=== PATIENT | male | born 1940 | race Hispanic/Latino ===

== ENCOUNTER 2020-03-12 16:48 | Emergency (ER) | payer MEDICARE, SELFPAY ==
[2020-03-12] VITALS (13 sets, daily range): BP systolic 129–144; BP diastolic 60–67; PULSE 65–76; RESP 16–21; O2SAT 97
--- NOTE | 2020-03-12 17:01 | DI.RAD.S_ITS ---
PROCEDURE: XR CHEST 1V INDICATIONS: chest pain TECHNIQUE: One view of the chest was acquired. COMPARISON: None. FINDINGS: Surgical changes and devices: None. Lungs and pleura: Lungs are clear. No pleural effusions or pneumothorax. Mediastinum: A questionable soft tissue mass versus overlapping vascular and bone shadows is noted over the right apex. Mediastinal contours appear normal. Heart size is normal. Bones and chest wall: No suspicious bony lesions. Overlying soft tissues appear unremarkable. IMPRESSION: 1. No acute cardiopulmonary findings. 2. Questionable right apical soft tissue mass versus artifact. When available, PA and lateral view recommended to further characterize findings. Dictated by: Arlen Austin M.D. on 03/12/2020 at 17:26 Approved by: Arlen Austin M.D. on 03/12/2020 at 17:27
[2020-03-12] MEDS: ASPIRIN 81 MG CHEW TAB 324 MG PO (17:12)
--- NOTE | 2020-03-12 17:15 | ED.CHESTPAIN ---
HPI - Chest Pain <DO Chester Gilliam Last Filed: 03/14/20 06:59> General Chief Complaint: Chest Pain Stated Complaint: cant breath, pressure on his chest Time Seen by Provider: 03/12/20 17:06 Source: patient Mode of arrival: Ambulatory Limitations: no limitations History of Present Illness HPI narrative: Patient is an 79-year-old male who presents with chest pain off and on but worse today. He says this morning he woke up at about 430 with chest discomfort. He got up to sit in the recliner and was able to fall back asleep. He has had multiple episodes of his chest discomfort today a progressively seems to be getting worse. Nothing makes it better or worse remains on the left side of his chest without any radiation. He does have some shortness of breath which she use to be worse with exertion. He has had a chronic ongoing cough which is not any worse today. He says sometimes he coughs things up and sometimes not. Initially his chest pain was 8/10 with triage but he now he says it is very mild and 1/10. He is noted to have a left bundle branch block which she is unaware of. MD complaint: chest pain Onset (ago): hour(s) Duration: intermittent Onset: during rest and during exertion Pain location: left chest Severity: moderate Quality: aching Pain radiation: none Relieving factors: nothing Exacerbating factors: nothing Related Data Home Medications Medication Instructions Recorded Confirmed amlodipine 10 mg PO QAM 03/12/20 03/12/20 benazepril 40 mg PO QAM 03/12/20 03/12/20 hydrochlorothiazide 25 mg PO QAM 03/12/20 03/12/20 Allergies Allergy/AdvReac Type Severity Reaction Status Date / Time No Known Drug Allergies Allergy Verified 03/12/20 17:18 Review of Systems <DO Chester Gilliam Last Filed: 03/14/20 06:59> Review of Systems Narrative: GENERAL: Denies chills, fatigue, malaise, fever, sweats, travel HEENT: Denies sinus pain, ear pain, sore throat, difficulty swallowing, neck pain RESPIRATORY: Denies dyspnea, cough, wheezing, hemoptysis, sputum. CARDIOVASCULAR: See HPI GASTROINTESTINAL: Denies nausea, vomiting, abdominal pain, diarrhea, constipation, melena. : Denies dysuria, frequency, incontinence, hematuria, urinary retention, flank pain. MUSCULOSKELETAL: Denies weakness, joint pain, or bony pain SKIN: No rash, no erythema, no pruritus NEUROLOGIC: Denies weakness, dizziness, headache, numbness, change in speech, confusion PSYCHIATRIC: No concerning psychosocial issues. 12 point review of systems is negative except for those stated above and HPI Patient History <Tete Painter DO - Last Filed: 03/14/20 06:59> Medical History (Updated 03/12/20 @ 20:38 by Prerna Saenz RN) Hypertension (Acute) Exam <Tete Painter DO - Last Filed: 03/14/20 06:59> Initial Vital Signs Initial Vital Signs: Vital Signs Pulse Rate 74 03/12/20 17:18 Blood Pressure 140/65 03/12/20 17:18 GENERAL: Pleasant alert male appears younger than stated age and in no acute distress. HEENT: Head atraumatic,EOMI, pupils reactive, face symmetric, moist mucous membranes CARDIOVASCULAR: Regular rate and rhythm systolic murmur patient states he is aware of a murmur RESPIRATORY: Breath sounds equal bilaterally, no wheezes rales or rhonchi. ABDOMEN: Soft, nontender. Normoactive bowel sounds all 4 quadrants. No guarding or rebound. EXTREMITIES: Normal range of motion, no clubbing or edema. Neurovascularly intact NEUROLOGICAL: Alert and oriented x4.Normal gait and speech. SKIN: Warm, dry, no laceration, no petechiae, no rashes or lesions. <Pilo Nelson DO - Last Filed: 03/12/20 23:52> Initial Vital Signs Initial Vital Signs: Vital Signs Pulse Rate 74 03/12/20 17:18 Blood Pressure 140/65 03/12/20 17:18 Course <Tete Painter DO - Last Filed: 03/14/20 06:59> Orders Ordered: Discontinued Medications Aspirin (Aspirin Chew) 324 mg PO NOW ONE Stop: 03/12/20 17:07 Last Admin: 03/12/20 17:12 Dose: 324 mg Documented by: SOL Nitroglycerin (Nitrostat) 0.4 mg SL [id number] PRN PRN Reason: Chest Pain Last Admin: 03/12/20 17:18 Dose: 0.4 mg Documented by: SOL Vital Signs Vital signs: Vital Signs - 8 hr 03/12/20 17:18 03/12/20 17:31 03/12/20 17:45 Pulse Rate 74 76 68 Respiratory Rate 16 18 Blood Pressure 140/65 134/65 131/60 Pulse Oximetry 97 03/12/20 18:00 03/12/20 18:15 03/12/20 18:30 Pulse Rate 67 69 68 Respiratory Rate 18 20 17 Blood Pressure 137/62 129/63 139/61 Pulse Oximetry 03/12/20 18:45 03/12/20 19:00 03/12/20 19:15 Pulse Rate 65 69 67 Respiratory Rate 17 20 18 Blood Pressure 136/61 142/62 H 131/60 Pulse Oximetry 03/12/20 19:30 03/12/20 19:45 03/12/20 20:00 Pulse Rate 73 66 74 Respiratory Rate 17 21 Blood Pressure 138/65 137/61 142/64 H Pulse Oximetry 03/12/20 20:15 Pulse Rate 74 Respiratory Rate 17 Blood Pressure 144/67 H Pulse Oximetry <Pilo Nelson, - Last Filed: 03/12/20 23:52> Course Course Narrative: Patient received in sign-out from Dr. Painter. Patient was waiting for repeat troponin to determine admission here versus transfer. Troponin returned slightly lower than first and plan was to admit here, but patient refused, stating he'd been evaluated previously and was told nothing could happen. I was unable to speak with patient prior to leaving, but through nursing he understood risk, had capacity to make this decision and would be following up. Orders Ordered: Discontinued Medications Aspirin (Aspirin Chew) 324 mg PO NOW ONE Stop: 03/12/20 17:07 Last Admin: 03/12/20 17:12 Dose: 324 mg Documented by: SOL Nitroglycerin (Nitrostat) 0.4 mg SL [id number] PRN PRN Reason: Chest Pain Last Admin: 03/12/20 17:18 Dose: 0.4 mg Documented by: SOL Vital Signs Vital signs: Vital Signs - 8 hr 03/12/20 17:18 03/12/20 17:31 03/12/20 17:45 Pulse Rate 74 76 68 Respiratory Rate 16 18 Blood Pressure 140/65 134/65 131/60 Pulse Oximetry 97 03/12/20 18:00 03/12/20 18:15 03/12/20 18:30 Pulse Rate 67 69 68 Respiratory Rate 18 20 17 Blood Pressure 137/62 129/63 139/61 Pulse Oximetry 03/12/20 18:45 03/12/20 19:00 03/12/20 19:15 Pulse Rate 65 69 67 Respiratory Rate 17 20 18 Blood Pressure 136/61 142/62 H 131/60 Pulse Oximetry 03/12/20 19:30 03/12/20 19:45 03/12/20 20:00 Pulse Rate 73 66 74 Respiratory Rate 17 21 Blood Pressure 138/65 137/61 142/64 H Pulse Oximetry 03/12/20 20:15 Pulse Rate 74 Respiratory Rate 17 Blood Pressure 144/67 H Pulse Oximetry MDM - Chest Pain <Tete Painter DO - Last Filed: 03/14/20 06:59> Lab Data Attestation: I reviewed the patient's lab results. Result diagrams: 03/12/20 17:00 03/12/20 17:00 Labs: Lab Results 03/12/20 03/12/20 03/12/20 Range/Units 17:00 17:00 17:00 WBC 5.2 (4.5-11.0) X10^3/uL RBC 4.40 L (4.5-5.9) X10^6/uL Hgb 12.8 L (13.5-17.5) g/dL Hct 38.0 L (41-53) % MCV 86.2 (80-100) fL MCH 29.1 (26-34) PG MCHC 33.8 (30-36) % RDW 14.1 (11.6-14.8) % Plt Count 208 (150-400) X10^3/uL Neut % (Auto) 54.3 (50-75) % Lymph % (Auto) 29.2 (25-40) % [place] % (Auto) 9.5 (3-14) % Eos % (Auto) 4.1 H (2-4) % Baso % (Auto) 2.9 H (0-2) % Neut # (Auto) 2800 (8051-5430) /uL Lymph # (Auto) 1500 (2122-7610) /uL [place] # (Auto) 500 (0-900) /uL Eos # (Auto) 200 (0-450) /uL Baso # (Auto) 200 H (0-100) /uL PT 12.8 H (10.1-12.7) SECONDS INR 1.1 (0.9-1.3) APTT 36 (26.4-36.2) SECONDS Sodium 136 L (137-145) mmol/L Potassium 3.7 (3.4-5.1) mmol/L Chloride 107 (98-107) mmol/L Carbon Dioxide 19 L (22-32) mmol/L BUN 25 H (9-20) mg/dL Creatinine 1.35 H (0.66-1.25) mg/dL Estimated GFR 50.9 L (>60) mL/min BUN/Creatinine Ratio 18.5 (6-22) Glucose 87 (80-110) mg/dL Calcium 9.2 (8.4-10.2) mg/dL Magnesium 2.0 (1.6-2.3) mg/dL Total Bilirubin 0.9 (0.2-1.3) mg/dL AST 24 (17-59) IU/L ALT 10 (<50) IU/L Alkaline Phosphatase 77 (38-126) U/L Total Creatine Kinase 72 (55-170) U/L CK-MB (CK-2) TNP CK-MB (CK-2) Rel Index TNP Troponin I 0.062 H (0.01-0.034) ng/mL NT-Pro-B Natriuret Pep (<450) pg/mL Total Protein 7.0 (6.3-8.2) g/dL Albumin 4.1 (3.5-5.0) g/dL Globulin 2.9 (1.7-4.1) g/dL Albumin/Globulin Ratio 1.4 (1.0-2.8) Lipase 79 (23-300) U/L Urine RBC (0-5/HPF) Urine WBC (0-5/HPF) Ur Squamous Epith Cells (0-5/HPF) Urine Bacteria (None) Ur Culture Indicated? 03/12/20 03/12/20 03/12/20 Range/Units 17:00 18:01 19:00 WBC (4.5-11.0) X10^3/uL RBC (4.5-5.9) X10^6/uL Hgb (13.5-17.5) g/dL Hct (41-53) % MCV (80-100) fL MCH (26-34) PG MCHC (30-36) % RDW (11.6-14.8) % Plt Count (150-400) X10^3/uL Neut % (Auto) (50-75) % Lymph % (Auto) (25-40) % [place] % (Auto) (3-14) % Eos % (Auto) (2-4) % Baso % (Auto) (0-2) % Neut # (Auto) (8243-3499) /uL Lymph # (Auto) (6583-4490) /uL [place] # (Auto) (0-900) /uL Eos # (Auto) (0-450) /uL Baso # (Auto) (0-100) /uL PT (10.1-12.7) SECONDS INR (0.9-1.3) APTT (26.4-36.2) SECONDS Sodium (137-145) mmol/L Potassium (3.4-5.1) mmol/L Chloride (98-107) mmol/L Carbon Dioxide (22-32) mmol/L BUN (9-20) mg/dL Creatinine (0.66-1.25) mg/dL Estimated GFR (>60) mL/min BUN/Creatinine Ratio (6-22) Glucose (80-110) mg/dL Calcium (8.4-10.2) mg/dL Magnesium (1.6-2.3) mg/dL Total Bilirubin (0.2-1.3) mg/dL AST (17-59) IU/L ALT (<50) IU/L Alkaline Phosphatase (38-126) U/L Total Creatine Kinase (55-170) U/L CK-MB (CK-2) CK-MB (CK-2) Rel Index Troponin I 0.057 H (0.01-0.034) ng/mL NT-Pro-B Natriuret Pep 85522 H (<450) pg/mL Total Protein (6.3-8.2) g/dL Albumin (3.5-5.0) g/dL Globulin (1.7-4.1) g/dL Albumin/Globulin Ratio (1.0-2.8) Lipase (23-300) U/L Urine RBC 0-1/hpf (0-5/HPF) Urine WBC 0-1/hpf (0-5/HPF) Ur Squamous Epith Cells 0-1 /hpf (0-5/HPF) Urine Bacteria None seen (None) Ur Culture Indicated? Cult not indicated Urine Dip Bedside Urine Glucose Negative Bedside Urine Bilirubin - Negative Bedside Urine Ketone - Negative Urine Specific [place] 1.015 Bedside Urine Occult Blood +/- Bedside Urine pH 6.0 Bedside Urine Protein + 30 Bedside Urine Urobilinogen - Negative Bedside Urine Nitrite - Negative Bedside Urine Leukocytes - Negative Esterase Imaging Data Chest x-ray: Attestation: I personally reviewed and interpreted this imaging study as follows: My Impression: PROCEDURE: XR CHEST 1V INDICATIONS: chest pain TECHNIQUE: One view of the chest was acquired. COMPARISON: None. FINDINGS: Surgical changes and devices: None. Lungs and pleura: Lungs are clear. No pleural effusions or pneumothorax. Mediastinum: A questionable soft tissue mass versus overlapping vascular and bone shadows is noted over the right apex. Mediastinal contours appear normal. Heart size is normal. Bones and chest wall: No suspicious bony lesions. Overlying soft tissues appear unremarkable. IMPRESSION: 1. No acute cardiopulmonary findings. 2. Questionable right apical soft tissue mass versus artifact. When available, PA and lateral view recommended to further characterize findings. Dictated by: Arlen Austin M.D. on 03/12/2020 at 17:26 Approved by: Arlen Austin M.D. on 03/12/2020 at 17:27 ECG Data Attestation: I personally reviewed and interpreted this ECG as follows: Prior ECG tracings: not available for review Interpretation: sinus rhythm rate 76 no priors to compare left bundle-branch block noted p.r. interval 212 EKG 2. Sinus rhythm left bundle-branch block noted no ST changes similar to previous EKG MDM Narrative Medical decision making narrative: The patient signs and symptoms concerning for acute coronary syndrome left bundle branch block is unknown if it is old or new. He has elevated BNP indeterminate troponin 2nd troponin is pending. 7:35pm [facility] Paredes they accept depending on 2nd troponin Signed out to Dr. Nelson <Pilo Nelson, DO - Last Filed: 03/12/20 23:52> Lab Data Labs: Lab Results 03/12/20 03/12/20 03/12/20 Range/Units 17:00 17:00 17:00 WBC 5.2 (4.5-11.0) X10^3/uL RBC 4.40 L (4.5-5.9) X10^6/uL Hgb 12.8 L (13.5-17.5) g/dL Hct 38.0 L (41-53) % MCV 86.2 (80-100) fL MCH 29.1 (26-34) PG MCHC 33.8 (30-36) % RDW 14.1 (11.6-14.8) % Plt Count 208 (150-400) X10^3/uL Neut % (Auto) 54.3 (50-75) % Lymph % (Auto) 29.2 (25-40) % [place] % (Auto) 9.5 (3-14) % Eos % (Auto) 4.1 H (2-4) % Baso % (Auto) 2.9 H (0-2) % Neut # (Auto) 2800 (3146-4564) /uL Lymph # (Auto) 1500 (7094-1833) /uL [place] # (Auto) 500 (0-900) /uL Eos # (Auto) 200 (0-450) /uL Baso # (Auto) 200 H (0-100) /uL PT 12.8 H (10.1-12.7) SECONDS INR 1.1 (0.9-1.3) APTT 36 (26.4-36.2) SECONDS Sodium 136 L (137-145) mmol/L Potassium 3.7 (3.4-5.1) mmol/L Chloride 107 (98-107) mmol/L Carbon Dioxide 19 L (22-32) mmol/L BUN 25 H (9-20) mg/dL Creatinine 1.35 H (0.66-1.25) mg/dL Estimated GFR 50.9 L (>60) mL/min BUN/Creatinine Ratio 18.5 (6-22) Glucose 87 (80-110) mg/dL Calcium 9.2 (8.4-10.2) mg/dL Magnesium 2.0 (1.6-2.3) mg/dL Total Bilirubin 0.9 (0.2-1.3) mg/dL AST 24 (17-59) IU/L ALT 10 (<50) IU/L Alkaline Phosphatase 77 (38-126) U/L Total Creatine Kinase 72 (55-170) U/L CK-MB (CK-2) TNP CK-MB (CK-2) Rel Index TNP Troponin I 0.062 H (0.01-0.034) ng/mL NT-Pro-B Natriuret Pep (<450) pg/mL Total Protein 7.0 (6.3-8.2) g/dL Albumin 4.1 (3.5-5.0) g/dL Globulin 2.9 (1.7-4.1) g/dL Albumin/Globulin Ratio 1.4 (1.0-2.8) Lipase 79 (23-300) U/L Urine RBC (0-5/HPF) Urine WBC (0-5/HPF) Ur Squamous Epith Cells (0-5/HPF) Urine Bacteria (None) Ur Culture Indicated? 03/12/20 03/12/20 03/12/20 Range/Units 17:00 18:01 19:00 WBC (4.5-11.0) X10^3/uL RBC (4.5-5.9) X10^6/uL Hgb (13.5-17.5) g/dL Hct (41-53) % MCV (80-100) fL MCH (26-34) PG MCHC (30-36) % RDW (11.6-14.8) % Plt Count (150-400) X10^3/uL Neut % (Auto) (50-75) % Lymph % (Auto) (25-40) % [place] % (Auto) (3-14) % Eos % (Auto) (2-4) % Baso % (Auto) (0-2) % Neut # (Auto) (1004-0195) /uL Lymph # (Auto) (9640-4798) /uL [place] # (Auto) (0-900) /uL Eos # (Auto) (0-450) /uL Baso # (Auto) (0-100) /uL PT (10.1-12.7) SECONDS INR (0.9-1.3) APTT (26.4-36.2) SECONDS Sodium (137-145) mmol/L Potassium (3.4-5.1) mmol/L Chloride (98-107) mmol/L Carbon Dioxide (22-32) mmol/L BUN (9-20) mg/dL Creatinine (0.66-1.25) mg/dL Estimated GFR (>60) mL/min BUN/Creatinine Ratio (6-22) Glucose (80-110) mg/dL Calcium (8.4-10.2) mg/dL Magnesium (1.6-2.3) mg/dL Total Bilirubin (0.2-1.3) mg/dL AST (17-59) IU/L ALT (<50) IU/L Alkaline Phosphatase (38-126) U/L Total Creatine Kinase (55-170) U/L CK-MB (CK-2) CK-MB (CK-2) Rel Index Troponin I 0.057 H (0.01-0.034) ng/mL NT-Pro-B Natriuret Pep 02803 H (<450) pg/mL Total Protein (6.3-8.2) g/dL Albumin (3.5-5.0) g/dL Globulin (1.7-4.1) g/dL Albumin/Globulin Ratio (1.0-2.8) Lipase (23-300) U/L Urine RBC 0-1/hpf (0-5/HPF) Urine WBC 0-1/hpf (0-5/HPF) Ur Squamous Epith Cells 0-1 /hpf (0-5/HPF) Urine Bacteria None seen (None) Ur Culture Indicated? Cult not indicated Urine Dip Bedside Urine Glucose Negative Bedside Urine Bilirubin - Negative Bedside Urine Ketone - Negative Urine Specific [place] 1.015 Bedside Urine Occult Blood +/- Bedside Urine pH 6.0 Bedside Urine Protein + 30 Bedside Urine Urobilinogen - Negative Bedside Urine Nitrite - Negative Bedside Urine Leukocytes - Negative Esterase Discharge Plan Departure Patient Disposition: Left Against Medical Advice Clinical Impression: Chest pain Discharge Date/Time: 03/12/20 20:36 Instructions: DI for Heart Failure, DI for Chest Pain Prescriptions: No Action amlodipine 10 mg Tablet 10 mg PO QAM RF: 0 hydrochlorothiazide 25 mg Tablet 25 mg PO QAM RF: 0 benazepril 40 mg Tablet 40 mg PO QAM RF: 0 Stand Alone Forms: Against Medical Advice
[2020-03-12 17:17] LABS: Add Manual Diff / Slide Review NO; Basophils Absolute Auto 200 /uL (0-100); Basophils Percent Auto 2.9 % (0-2); Eosinophils Absolute Auto 200 /uL (0-450); Eosinophils Percent Auto 4.1 % (2-4); Hemoglobin 12.8 g/dL (13.5-17.5); Lymphocytes Absolute Auto 1500 /uL (1100-4500); Lymphocytes Percent Auto 29.2 % (25-40); Mean Corpuscular HGB Conc 33.8 % (30-36); Mean Corpuscular Hemoglobin 29.1 PG (26-34); Mean Corpuscular Volume 86.2 fL (80-100); Monocytes Absolute Auto 500 /uL (0-900); Monocytes Percent Auto 9.5 % (3-14); Neutrophils Absolute Auto 2800 /uL (1500-7000); Neutrophils Percent Auto 54.3 % (50-75); Platelet Count 208 X10^3/uL (150-400); Red Cell Distribution Width 14.1 % (11.6-14.8); White Blood Cell Count 5.2 X10^3/uL (4.5-11.0)
[2020-03-12] MEDS: NITROGLYCERIN 0.4 MG SL TAB SL (17:18)
[2020-03-12 17:24] LABS: INR 1.1 (0.9-1.3); Prothrombin Time 12.8 SECONDS (10.1-12.7)
[2020-03-12 17:26] LABS: PTT Partial Thromboplastin Tim 36 SECONDS (26.4-36.2)
[2020-03-12 17:29] LABS: Alanine Aminotransferase 10 IU/L (<50); Albumin 4.1 g/dL (3.5-5.0); Albumin Globulin Ratio 1.4 (1.0-2.8); Alkaline Phosphatase 77 U/L (38-126); Aspartate Aminotransferase 24 IU/L (17-59); BUN Creatinine Ratio 18.5 (6-22); Bilirubin Total 0.9 mg/dL (0.2-1.3); Blood Urea Nitrogen 25 mg/dL (9-20); Calcium 9.2 mg/dL (8.4-10.2); Carbon Dioxide 19 mmol/L (22-32); Chloride 107 mmol/L (98-107); Creatine Kinase 72 U/L (55-170); Estimated Glomerular Filt Rate 50.9 mL/min (>60); Globulin 2.9 g/dL (1.7-4.1); Glucose 87 mg/dL (80-110); HEMOLYSIS < 15 (0-50); Lipase 79 U/L (23-300); Potassium 3.7 mmol/L (3.4-5.1); Sodium 136 mmol/L (137-145)
[2020-03-12 17:37] LABS: NT-proBNP (BNP-Adult 18+) 18500 pg/mL (<450)
[2020-03-12 17:40] LABS: Troponin I 0.062 ng/mL (0.01-0.034)
[2020-03-12 18:43] LABS: Bacteria Urine None Seen
[2020-03-12 18:53] LABS: Culture Indicated Urine Cult Not Indicated; RBC Urine 0-1/HPF (0-5/HPF); Squamous Epithelial Cell Urine 0-1 /HPF (0-5/HPF); WBC Urine 0-1/HPF (0-5/HPF)
[2020-03-12 19:44] LABS: Troponin I 0.057 ng/mL (0.01-0.034)
--- NOTE | 2020-03-12 20:12 | PC.NURSE ---
spoke w/ pt and Pt's daughter and primary caregiver (Krysten). Pt states he does not want to stay in the hospital and wants to be discharged. They have worked up this chest pain for a long time and nothing ever comes of it. Pt / dtr agreed to follow up with his new PCP Braeden Feliciano. Pt is currently painfree. No acute distress. Encouraged to f/u with primary care provider and return for any needs or concerns, worsening of symptoms.
--- NOTE | 2020-03-12 20:34 | PC.NURSE ---
Pt home w/ daughter Krysten. Verbalized understanding to start Aspirin 81 mg po daily. Email sent to Dr. Braeden Feliciano to assist in expediting follow up care. Both pt and daughter verbalized understanding to return if any concerns, worsening. Pt states I'm 79 years old....what are you really going to do?
== END 2020-03-12 20:36 | disposition left against medical advice (07) ==
PROVIDERS: Emergency Provider Emergency Medicine
DX: R07.9 Chest pain, unspecified (principal); I10 Essential (primary) hypertension
CPT/HCPCS: 36415; 71045; 80053; 81003; 81015; 82550; 83690; 83735; 83880; 84484; 85025; 85610; 85730; 93005; 99284

== ENCOUNTER 2020-03-14 09:48 | Emergency (ER) | payer MEDICARE, SELFPAY ==
[2020-03-14] VITALS (9 sets, daily range): BP systolic 127–147; BP diastolic 58–65; PULSE 59–89; RESP 17–24; TEMP 36.6; O2SAT 96–98; BMI 20.9
--- NOTE | 2020-03-14 09:51 | DI.RAD.S_ITS ---
PROCEDURE: XR CHEST 1V INDICATIONS: chest pain TECHNIQUE: One view of the chest was acquired. COMPARISON: [facility], CR, XR CHEST 1V, 03/12/2020, 17:10. FINDINGS: Surgical changes and devices: None. Lungs and pleura: Question right apical mass versus superimposition of bony and vascular structures. Lungs are clear. No pleural effusions or pneumothorax. Mediastinum: Mediastinal contours appear normal. Mild cardiomegaly. Bones and chest wall: No suspicious bony lesions. Overlying soft tissues appear unremarkable. Remote total left shoulder arthroplasty. IMPRESSION: 1. Question medial right apical mass. Suggest CT chest for further evaluation. 2. No evidence acute pulmonary process. 3. Mild cardiomegaly. Dictated by: Jean Carlos West M.D. on 03/14/2020 at 10:10 Approved by: Jean Carlos West M.D. on 03/14/2020 at 10:12
[2020-03-14] MEDS: ASPIRIN 81 MG CHEW TAB 324 MG PO (09:58)
[2020-03-14] MEDS: NITROGLYCERIN 0.4 MG SL TAB SL ×3 (10:02→10:29)
[2020-03-14 10:06] LABS: Add Manual Diff / Slide Review NO; Basophils Absolute Auto 100 /uL (0-100); Basophils Percent Auto 1.4 % (0-2); Eosinophils Absolute Auto 100 /uL (0-450); Eosinophils Percent Auto 1.1 % (2-4); Hematocrit 38.5 % (41-53); Hemoglobin 12.9 g/dL (13.5-17.5); Lymphocytes Absolute Auto 700 /uL (1100-4500); Lymphocytes Percent Auto 13.4 % (25-40); Mean Corpuscular HGB Conc 33.4 % (30-36); Mean Corpuscular Hemoglobin 28.9 PG (26-34); Mean Corpuscular Volume 86.4 fL (80-100); Monocytes Absolute Auto 400 /uL (0-900); Monocytes Percent Auto 6.4 % (3-14); Neutrophils Absolute Auto 4300 /uL (1500-7000); Neutrophils Percent Auto 77.7 % (50-75); Platelet Count 188 X10^3/uL (150-400); Red Blood Cell Count 4.46 X10^6/uL (4.5-5.9); Red Cell Distribution Width 13.8 % (11.6-14.8); White Blood Cell Count 5.5 X10^3/uL (4.5-11.0)
--- NOTE | 2020-03-14 10:10 | ED_ITS ---
HPI - Chest Pain General Chief Complaint: Chest Pain Stated Complaint: Tightness in chest, pain, difficulty breathing Time Seen by Provider: 03/14/20 09:50 Source: patient Mode of arrival: Ambulatory Limitations: no limitations History of Present Illness HPI narrative: Patient is an 79-year-old male with history of hypertension who presents with chest discomfort. It has been off and on for a while but progressively getting worse. In fact he was here 2 days ago it was recommended that he stay and have a stress test however he left against medical advice at that time. This morning his chest pain woke him from his sleep at around 1:00 a.m.. It has been relatively constant remains on the left side nonradiating. Walking makes it significantly worse however drinking water makes it better. He also is experiencing orthopnea and has some shortness of breath with exertion. He was found have a left bundle-branch block 2 days ago unknown if that is old or new he has a known murmur as well. MD complaint: chest pain Onset (ago): day(s) Duration: intermittent Onset: during rest Pain location: left chest Severity: moderate Quality: aching Relieving factors: nitroglycerin and rest Exacerbating factors: exertion Related Data Home Medications Medication Instructions Recorded Confirmed amlodipine 10 mg PO QAM 03/12/20 03/14/20 benazepril 40 mg PO QAM 03/12/20 03/14/20 hydrochlorothiazide 25 mg PO QAM 03/12/20 03/14/20 Allergies Allergy/AdvReac Type Severity Reaction Status Date / Time No Known Drug Allergies Allergy Verified 03/14/20 10:07 Review of Systems Review of Systems Narrative: GENERAL: Denies chills, fatigue, malaise, fever, sweats, travel HEENT: Denies sinus pain, ear pain, sore throat, difficulty swallowing, neck pain RESPIRATORY: See HPI CARDIOVASCULAR: See HPI GASTROINTESTINAL: Denies nausea, vomiting, abdominal pain, diarrhea, constipation, melena. : Denies dysuria, frequency, incontinence, hematuria, urinary retention, flank pain. MUSCULOSKELETAL: Denies weakness, joint pain, or bony pain SKIN: No rash, no erythema, no pruritus NEUROLOGIC: Denies weakness, dizziness, headache, numbness, change in speech, confusion PSYCHIATRIC: No concerning psychosocial issues. 12 point review of systems is negative except for those stated above and HPI Patient History Medical History Hypertension (Acute) Social History Smoking Status: Unknown if ever smoked Smoking Status: Unknown if ever smoked alcohol intake frequency: holidays/special occasions only Substance Use Type: does not use Exam Initial Vital Signs Initial Vital Signs: Vital Signs Temperature 97.9 F 03/14/20 09:50 Pulse Rate 89 03/14/20 09:50 Respiratory Rate 18 03/14/20 09:50 Blood Pressure 147/65 H 03/14/20 09:50 Pulse Oximetry 98 03/14/20 09:50 GENERAL: Alert well-appearing elderly male a younger than stated age and in no acute distress. HEENT: Head atraumatic,EOMI, pupils reactive, face symmetric, moist mucous membranes CARDIOVASCULAR: Regular rate and rhythm + systolic murmur, rubs or gallops. RESPIRATORY: Breath sounds equal bilaterally, no wheezes rales or rhonchi. ABDOMEN: Soft, nontender. Normoactive bowel sounds all 4 quadrants. No guarding or rebound. EXTREMITIES: Normal range of motion, no clubbing or edema. Neurovascularly intact NEUROLOGICAL: Alert and oriented x4.Normal gait and speech. Cranial nerves II through XII grossly intact. SKIN: Warm, dry, no laceration, no petechiae, no rashes or lesions. Course Orders Ordered: ED Orders 03/14/20 09:51 XR chest 1V Stat 03/14/20 09:52 EKG-12 Lead Stat 03/14/20 09:55 Complete Blood Count AUTO DIFF Stat Comprehensive Metabolic Panel Stat Lipase Stat NT-proBNP (BNP-Adult 18+) Stat Partial Thromboplastin Time Stat Prothrombin Time INR Stat Troponin & CK Cardiac Panel Stat 03/14/20 10:15 EKG-12 Lead Stat Discontinued Medications Aspirin (Aspirin Chew) 324 mg PO NOW ONE Stop: 03/14/20 09:52 Last Admin: 03/14/20 09:58 Dose: 182 mg Documented by: KARMA Furosemide (Lasix) 40 mg IV NOW ONE Stop: 03/14/20 10:33 Last Admin: 03/14/20 10:53 Dose: 40 mg Documented by: KARMA Heparin Sodium (Porcine) (Heparin) 4,000 unit IV NOW ONE Stop: 03/14/20 10:54 Last Admin: 03/14/20 11:05 Dose: 4,000 unit Documented by: KARMA Heparin Sodium/Dextrose (Heparin Drip) 25,000 unit in 500 mls @ 14.152 mls/hr IV CONT JESSI; Protocol Last Titration: 03/14/20 11:18 Dose: 0 units/kg/hr, 0 mls/hr Documented by: Titration: 03/14/20 11:17 Dose: 12 units/kg/hr, 14.152 mls/hr Documented by: Admin: 03/14/20 11:07 Dose: 12 units/kg/hr, 14.152 mls/hr Documented by: KARMA Nitroglycerin (Nitroglycerin) 50 mg in 250 mls @ 1.5 mls/hr IV TITRATE JESSI; Protocol Last Titration: 03/14/20 11:19 Dose: 0 mcg/min, 0 mls/hr Documented by: Admin: 03/14/20 11:07 Dose: 5 mcg/min, 1.5 mls/hr Documented by: KARMA Nitroglycerin (Nitrostat) 0.4 mg SL [id number] PRN PRN Reason: Chest Pain Last Admin: 03/14/20 10:29 Dose: 0.4 mg Documented by: Admin: 03/14/20 10:21 Dose: 0.4 mg Documented by: KARMA Consultations Consultation #1: Dr. Bains contacted reviewed ekgs. 10:50 called back ekgs are concerning, request talk to STEMI 11:05 agreees with transfer to [facility] Time: 10:14 Vital Signs Vital signs: Vital Signs - 8 hr 03/14/20 09:50 03/14/20 10:02 03/14/20 10:15 Temperature 97.9 F Pulse Rate 89 81 79 Respiratory Rate 18 20 Blood Pressure 147/65 H 141/63 H Pulse Oximetry 98 96 03/14/20 10:21 03/14/20 10:26 03/14/20 10:29 Temperature Pulse Rate 78 79 76 Respiratory Rate 24 19 Blood Pressure 133/63 127/58 L 129/60 Pulse Oximetry 96 96 03/14/20 10:30 03/14/20 11:00 03/14/20 11:07 Temperature Pulse Rate 78 72 59 L Respiratory Rate 17 17 Blood Pressure 129/60 139/64 139/64 Pulse Oximetry 96 96 MDM - Chest Pain Lab Data Attestation: I reviewed the patient's lab results. Result diagrams: 03/14/20 09:55 03/14/20 09:55 Labs: Lab Results 03/14/20 03/14/20 03/14/20 Range/Units 09:55 09:55 09:55 WBC 5.5 (4.5-11.0) X10^3/uL RBC 4.46 L (4.5-5.9) X10^6/uL Hgb 12.9 L (13.5-17.5) g/dL Hct 38.5 L (41-53) % MCV 86.4 (80-100) fL MCH 28.9 (26-34) PG MCHC 33.4 (30-36) % RDW 13.8 (11.6-14.8) % Plt Count 188 (150-400) X10^3/uL Neut % (Auto) 77.7 H D (50-75) % Lymph % (Auto) 13.4 L (25-40) % Calvert % (Auto) 6.4 (3-14) % Eos % (Auto) 1.1 L (2-4) % Baso % (Auto) 1.4 (0-2) % Neut # (Auto) 4300 (9823-6738) /uL Lymph # (Auto) 700 L (3497-6602) /uL Calvert # (Auto) 400 (0-900) /uL Eos # (Auto) 100 (0-450) /uL Baso # (Auto) 100 (0-100) /uL PT 12.8 H (10.1-12.7) SECONDS INR 1.1 (0.9-1.3) APTT 32 D (26.4-36.2) SECONDS Sodium 135 L (137-145) mmol/L Potassium 3.5 (3.4-5.1) mmol/L Chloride 104 (98-107) mmol/L Carbon Dioxide 19 L (22-32) mmol/L BUN 23 H (9-20) mg/dL Creatinine 1.52 H (0.66-1.25) mg/dL Estimated GFR 44.3 L (>60) mL/min BUN/Creatinine Ratio 15.1 (6-22) Glucose 99 (80-110) mg/dL Calcium 8.9 (8.4-10.2) mg/dL Total Bilirubin 0.9 (0.2-1.3) mg/dL AST 32 (17-59) IU/L ALT 19 (<50) IU/L Alkaline Phosphatase 77 (38-126) U/L Total Creatine Kinase 109 (55-170) U/L CK-MB (CK-2) 2.50 H (<2.37) ng/mL CK-MB (CK-2) Rel Index 2.3 (1.5-5.0) % Troponin I 0.056 H (0.01-0.034) ng/mL NT-Pro-B Natriuret Pep 51129 H (<450) pg/mL Total Protein 6.8 (6.3-8.2) g/dL Albumin 4.0 (3.5-5.0) g/dL Globulin 2.8 (1.7-4.1) g/dL Albumin/Globulin Ratio 1.4 (1.0-2.8) Lipase 44 (23-300) U/L Imaging Data Chest x-ray: Radiologist's Impression: PROCEDURE: XR CHEST 1V INDICATIONS: chest pain TECHNIQUE: One view of the chest was acquired. COMPARISON: [facility], , XR CHEST 1V, 03/12/2020, 17:10. FINDINGS: Surgical changes and devices: None. Lungs and pleura: Question right apical mass versus superimposition of bony and vascular structures. Lungs are clear. No pleural effusions or pneumothorax. Mediastinum: Mediastinal contours appear normal. Mild cardiomegaly. Bones and chest wall: No suspicious bony lesions. Overlying soft tissues appear unremarkable. Remote total left shoulder arthroplasty. IMPRESSION: 1. Question medial right apical mass. Suggest CT chest for further evaluation. 2. No evidence acute pulmonary process. 3. Mild cardiomegaly. Dictated by: Jean Carlos West M.D. on 03/14/2020 at 10:10 ECG Data Interpretation: EKG 1. Sinus rhythm rate 81 significant elevation V3 V4 V5 positive for Sgarbosa criteria EKG 2. Rate 71 persistent elevations V3 V4 V[address] depression Core Measures AMI core measures followed: Yes MDM Narrative Medical decision making narrative: The patient is given nitroglycerin at help with the chest pain but not does not resolve it. Concerning EKG. Consulted with Cardiology there was some delay in response agrees positive for Sgarbosa. Patient continues to have some chest discomfort despite nitroglycerin patient transferred to [facility] as stat STEMI. Unfortunately never spoke with the STEMI dr. Escoto, voicemail was full. Discussion with Dr. Carrion ER physician who graciously accepts Critical Care Time Critical Care Time Critical Care Time: Yes Total Critical Care Time: 30 Attestation: The high probability of a clinically significant, sudden or life threatening deterioration of the [cardiovascular] system(s) required my full and direct attention, intervention and personal management. The aggregate critical care time was 30 minutes. This time is in addition to time spent performing reported procedures but includes the following: [x] Data Review and interpretation [x] Patient assessment and monitoring of vital signs [x] Documentation [x] Medication orders and management Discharge Plan Departure Patient Disposition: [facility] Clinical Impression: ST elevation myocardial infarction (STEMI) Discharge Date/Time: 03/14/20 11:31 Prescriptions: No Action amlodipine 10 mg Tablet 10 mg PO QAM RF: 0 hydrochlorothiazide 25 mg Tablet 25 mg PO QAM RF: 0 benazepril 40 mg Tablet 40 mg PO QAM RF: 0
[2020-03-14 10:14] LABS: INR 1.1 (0.9-1.3); Prothrombin Time 12.8 SECONDS (10.1-12.7)
[2020-03-14 10:16] LABS: PTT Partial Thromboplastin Tim 32 SECONDS (26.4-36.2)
[2020-03-14 10:18] LABS: Alanine Aminotransferase 19 IU/L (<50); Albumin Globulin Ratio 1.4 (1.0-2.8); Alkaline Phosphatase 77 U/L (38-126); Aspartate Aminotransferase 32 IU/L (17-59); BUN Creatinine Ratio 15.1 (6-22); Bilirubin Total 0.9 mg/dL (0.2-1.3); Blood Urea Nitrogen 23 mg/dL (9-20); Calcium 8.9 mg/dL (8.4-10.2); Carbon Dioxide 19 mmol/L (22-32); Chloride 104 mmol/L (98-107); Creatine Kinase 109 U/L (55-170); Estimated Glomerular Filt Rate 44.3 mL/min (>60); Globulin 2.8 g/dL (1.7-4.1); Glucose 99 mg/dL (80-110); HEMOLYSIS < 15 (0-50); Lipase 44 U/L (23-300); Potassium 3.5 mmol/L (3.4-5.1); Sodium 135 mmol/L (137-145); Total Protein 6.8 g/dL (6.3-8.2)
[2020-03-14 10:30] LABS: NT-proBNP (BNP-Adult 18+) 19900 pg/mL (<450); Troponin I 0.056 ng/mL (0.01-0.034)
[2020-03-14 10:33] LABS: CKMB % Relative Index 2.3 % (1.5-5.0)
[2020-03-14] MEDS: FUROSEMIDE 40 MG/4 ML VIAL IV (10:53)
[2020-03-14] MEDS: HEPARIN 5,000 UNIT/ML VIAL 4000 UNIT IV (11:05)
[2020-03-14] MEDS: NITROGLYCERIN 50 MG/250 ML INFUS..BTL IV (11:07)
[2020-03-14] MEDS: HEPARIN DRIP 25,000 UNIT/500 ML IV.SOLN 14.152 UNIT IV (11:07)
[2020-03-14 12:08] LABS: COVID19 -Nasal RAPID Negative (Negative)
== END 2020-03-14 11:31 | disposition short-term general hospital (02) ==
PROVIDERS: Emergency Provider Emergency Medicine
DX: I21.3 ST elevation (STEMI) myocardial infarction of unspecified site (principal); R06.01 Orthopnea; I10 Essential (primary) hypertension
CPT/HCPCS: 36415; 71045; 80053; 82550; 82553; 83690; 83880; 84484; 85025; 85610; 85730; 87635; 93005; 96374; 96375; 99284; 99291; J1644; J1940